=== PATIENT | male | born 1990 | race Caucasian/White ===

== ENCOUNTER 2016-08-29 10:47 | Emergency (ER) | payer OTHER ==
[2016-08-29] MEDS ORDERED: KETOROLAC 30 MG/ML VIAL (J1885) As Ordered ONE (12:17)
--- NOTE | 2016-08-29 13:19 | EDDOCDS ---
Physician Documentation [facility] Name: Luis Enrique Kaiser Iii Age: 26 yrs Sex: Male : 1990 Arrival Date: 08/29/2016 Time: 10:47 Bed TR8 Private MD: [facility] [place] Disposition: 08/29/16 12:59 Discharged to Home/Self Care. Impression: Dorsalgia - Acute, Right-sided. - Condition is Stable. - Discharge Instructions: Back Pain, Adult, [id number]. - Prescriptions for Mobic 7.5 mg Oral Tablet - take 1 tablet by ORAL route once daily take with food; 20 tablet. Prednisone 20 mg Oral Tablet - take 3 tablet by ORAL route once daily for 5 days; 15 tablet. Zanaflex 4 mg Oral Tablet - take 1 tablet by ORAL route At bedtime As needed Will cause drowsiness, do not take while driving/operating heavy machinery.; 20 tablet. - Medication Reconciliation, Local Pharmacy Hours form. - Follow up: [facility]; When: 1 - 2 days; Reason: Recheck today's complaints, Continuance of care. Follow up: Emergency Department; Reason: Worsening of conditions. - Problem is new. - Symptoms have improved. Historical: - Allergies: no known allergies; - Home Meds: 1. none - PMHx: none; - PSHx: none; - Social history: Smoking status: Chewing Tobacco No barriers to communication noted, The patient speaks fluent Sao Tomean. - Family history: Not pertinent. - : The pt / caregiver states he / she is not on anticoagulants. Home medication list is obtained from the patient. - Exposure Risk Screening:: None identified. Vital Signs: 08/29 10:49 BP 147 / 82; Pulse 78; Resp 18 S; Temp 97.2(O); Pulse Ox 100% on R/A; Weight 70.31 kg / dd6 155.01 lbs (R); Height 5 ft. 10 in. (177.80 cm) (R); 13:08 BP 114 / 78; Pulse 61; Resp 20; Temp 98.9(TE); Pulse Ox 97% on R/A; Pain 7/10; ar3 10:49 Body Mass Index 22.24 (70.31 kg, 177.80 cm) dd6 MDM: 12:10 Misc. Nursing Order ordered. ef1 12:15 ketorolac 60 mg IM once ordered. ef1 13:14 [facility] Payment Agreement was scanned into [employer] and attached to record. jp5 13:14 Financial registration complete. jp5 Administered Medications: 12:23 Drug: ketorolac 60 mg [ketorolac 30 mg/mL (1 mL) injection solution (2 mL)] Route: IM; kcs Site: left gluteus; Signatures: Dora Luna RN RN kcs Scott, Debra, RN RN dls Feola, Erica, PA-C PA-C ef1 Ally Hooper RN RN ms18 Siena Valenzuela jp5 The chart was reviewed and I authenticate all verbal orders and agree with the evaluation and treatment provided.Attachments: 13:14 [facility] Payment Agreement jp5 MTDD
--- NOTE | 2016-08-29 13:19 | EDDOCDS ---
Nurse's Notes [facility] Name: Luis Enrique Kaiser Iii Age: 26 yrs Sex: Male : 1990 Arrival Date: 08/29/2016 Time: 10:47 Bed TR8 Private MD: AKLANE HUMPHREY Diagnosis: Dorsalgia-Acute, Right-sided Presentation: 08/29 10:55 Presenting complaint: Patient states: Pt presents with c/o neck pain right side dls shoulder arm down to his hand with numbness to fingers woke up with sx yesterday morning denies injury. Risk Factors No acute neurological deficit is noted. Adult Sepsis Screening: The patient does not have new or worsening altered mentation. Patient's respiratory rate is less than 22. Systolic blood pressure is greater than 100. Patient has a qSOFA score of 0- Negative Sepsis Screen. Suicide/Homicide risk assessment- the patient denies having any suicidal and/or homicidal ideations and does not present with any other emotional, behavioral or mental health complaints. Status: The patient is an active duty services advisor. Transition of care: patient was not received from another setting of care. 10:55 Acuity: AMERICA Level 4 dls 10:55 Method Of Arrival: Walkin/Carried/Asstd dls Triage Assessment: 10:57 General: Appears uncomfortable, well developed, well nourished, well groomed, Behavior dls is cooperative. Pain: Pain currently is 8 out of 10 on a pain scale. HIV screening NA for this visit Offered previously. Musculoskeletal: Reports pain in right hand and right arm. Injury Description: No known injury. Historical: - Allergies: no known allergies; - Home Meds: 1. none - PMHx: none; - PSHx: none; - Social history: Smoking status: Chewing Tobacco No barriers to communication noted, The patient speaks fluent Kazakh. - Family history: Not pertinent. - : The pt / caregiver states he / she is not on anticoagulants. Home medication list is obtained from the patient. - Exposure Risk Screening:: None identified. Screenin:16 Screening information is obtained from the patient. Fall risk: No risks identified. ms18 Fall risk: At risk due to. Assistance ADL's: requires no assistance with activities of daily living. Abuse/DV Screen: The patient / caregiver reports he/she is: not in a situation that causes fear, pain or injury. Nutritional screening: No deficits noted. Advance Directives: There is no living will. home support is adequate. Assessment: 13:16 General: Appears in no apparent distress, comfortable, Behavior is appropriate for age, ms18 cooperative. Pain: Location: right arm Pain currently is 7 out of 10 on a pain scale. Neurological: Level of Consciousness is awake, alert, obeys commands, Oriented to person, place, time, Moves all extremities. Gait is steady, Speech is normal, Facial symmetry appears normal. Respiratory: No deficits noted. Derm: Skin is pink, warm & dry. Vital Signs: 10:49 BP 147 / 82; Pulse 78; Resp 18 S; Temp 97.2(O); Pulse Ox 100% on R/A; Weight 70.31 kg dd6 (R); Height 5 ft. 10 in. (177.80 cm) (R); 13:08 BP 114 / 78; Pulse 61; Resp 20; Temp 98.9(TE); Pulse Ox 97% on R/A; Pain 7/10; ar3 10:49 Body Mass Index 22.24 (70.31 kg, 177.80 cm) dd6 Vitals: 10:49 Log In Time: August 29, 2016 at 10:47. dd6 ED Course: 10:48 Patient visited by Jeancarlos Nolasco PCA. dd6 10:48 Patient moved to Waiting dd6 10:49 [facility] is Private Physician. dd6 10:50 Patient moved to Pre RCE dd6 10:57 Triage Initiated dls 11:30 Patient moved to Triage 2 ar3 11:55 [facility] ef1 11:55 David Raphael MD is Attending Physician. ef1 12:08 Patient visited by Jaz Olivera PA-C. ef1 12:21 Patient moved to PR2 / 26 ar3 12:47 Patient visited by Jaz Olivera PA-C. ef1 12:58 Patient visited by Jaz Olivera PA-C. ef1 12:58 [facility] is Referral Physician. ef1 13:09 Patient visited by Farhana Riggins PCA. ar3 13:14 [facility] Payment Agreement was scanned into [employer] and attached to record. jp5 13:15 Patient visited by Ally Hooper RN. ms18 13:15 Patient moved to 8 ms18 13:16 The patient / caregiver is instructed regarding the plan of care and ED course. Patient ms18 has correct armband on for positive identification. Property sent home with patient. :Personal belongings accompany Pt. 13:16 No IV's were initiated during this patient's visit. No procedures done that require ms18 assistance. Administered Medications: 12:23 Drug: ketorolac 60 mg [ketorolac 30 mg/mL (1 mL) injection solution (2 mL)] Route: IM; kcs Site: left gluteus; Order Results: There are currently no results for this order. Outcome: 12:59 Discharge ordered by Provider. ef1 13:16 Discharge Assessment: Patient awake, alert and oriented x 3. No cognitive and/or ms18 functional deficits noted. Patient verbalized understanding of disposition instructions. patient administered narcotics - no. The following High Risk Discharge criteria are identified: None. Discharged to home ambulatory. Condition: good Condition: stable. Discharge instructions given to patient, Instructed on discharge instructions, follow up and referral plans. medication usage, Demonstrated understanding of instructions, medications, Pt was receptive of discharge instructions/ teaching. Prescriptions given X 3. No special radiology studies were completed. 13:18 Patient left the ED. ms18 Signatures: Dora uLna RN Yoli Garcia RN RN dls Desormeau, Daniell, EMERGENCY MEDICAL DISPATCHER EMERGENCY MEDICAL DISPATCHER dd6 Jaz Olivera, PA-C PA-C ef1 Farhana Riggins, EMERGENCY MEDICAL DISPATCHER EMERGENCY MEDICAL DISPATCHER ar3 Ally Hooper RN RN ms18 Siena Valenzuela jp5 MTDD
--- NOTE | 2016-08-31 14:19 | EDDOCDS ---
Physician Documentation [facility] Name: Luis Enrique Kaiser Iii Age: 26 yrs Sex: Male : 1990 Arrival Date: 08/29/2016 Time: 10:47 Bed TR8 Private MD: [facility] [place] Disposition: 08/29/16 12:59 Discharged to Home/Self Care. Impression: Dorsalgia - Acute, Right-sided. - Condition is Stable. - Discharge Instructions: Back Pain, Adult, [id number]-[id number]. - Prescriptions for Mobic 7.5 mg Oral Tablet - take 1 tablet by ORAL route once daily take with food; 20 tablet. Prednisone 20 mg Oral Tablet - take 3 tablet by ORAL route once daily for 5 days; 15 tablet. Zanaflex 4 mg Oral Tablet - take 1 tablet by ORAL route At bedtime As needed Will cause drowsiness, do not take while driving/operating heavy machinery.; 20 tablet. - Medication Reconciliation, Local Pharmacy Hours form. - Follow up: [facility]; When: 1 - 2 days; Reason: Recheck today's complaints, Continuance of care. Follow up: Emergency Department; Reason: Worsening of conditions. - Problem is new. - Symptoms have improved. Historical: - Allergies: no known allergies; - Home Meds: 1. none - PMHx: none; - PSHx: none; - Social history: Smoking status: Chewing Tobacco No barriers to communication noted, The patient speaks fluent Nicaraguan. - Family history: Not pertinent. - : The pt / caregiver states he / she is not on anticoagulants. Home medication list is obtained from the patient. - Exposure Risk Screening:: None identified. Vital Signs: 08/29 10:49 BP 147 / 82; Pulse 78; Resp 18 S; Temp 97.2(O); Pulse Ox 100% on R/A; Weight 70.31 kg / dd6 155.01 lbs (R); Height 5 ft. 10 in. (177.80 cm) (R); 13:08 BP 114 / 78; Pulse 61; Resp 20; Temp 98.9(TE); Pulse Ox 97% on R/A; Pain 7/10; ar3 10:49 Body Mass Index 22.24 (70.31 kg, 177.80 cm) dd6 MDM: 12:10 Misc. Nursing Order ordered. ef1 12:15 ketorolac 60 mg IM once ordered. ef1 13:14 [facility] Payment Agreement was scanned into [employer] and attached to record. jp5 13:14 Financial registration complete. jp5 14:53 T-Sheet-- Draft Copy was scanned into [employer] and attached to record. gb Administered Medications: 12:23 Drug: ketorolac 60 mg [ketorolac 30 mg/mL (1 mL) injection solution (2 mL)] Route: IM; kcs Site: left gluteus; Signatures: Dora Luna, RN RN Yoli Kraus RN RN dls Teresa Mcfarlane, Reg Reg gb Jaz Olivera, PA-C PA-C ef1 Ally Hooper,RN RN ms18 Siena Valenzuela jp5 The chart was reviewed and I authenticate all verbal orders and agree with the evaluation and treatment provided.Attachments: 13:14 [facility] Payment Agreement jp5 14:53 T-Sheet-- Draft Copy gb Chart Complete MTDD
--- NOTE | 2016-08-31 14:19 | EDDOCDS ---
Physician Documentation [facility] Name: Luis Enrique Kaiser Iii Age: 26 yrs Sex: Male : 1990 Arrival Date: 08/29/2016 Time: 10:47 Bed TR8 Private MD: [facility] [place] Disposition: 08/29/16 12:59 Discharged to Home/Self Care. Impression: Dorsalgia - Acute, Right-sided. - Condition is Stable. - Discharge Instructions: Back Pain, Adult, [id number]. - Prescriptions for Mobic 7.5 mg Oral Tablet - take 1 tablet by ORAL route once daily take with food; 20 tablet. Prednisone 20 mg Oral Tablet - take 3 tablet by ORAL route once daily for 5 days; 15 tablet. Zanaflex 4 mg Oral Tablet - take 1 tablet by ORAL route At bedtime As needed Will cause drowsiness, do not take while driving/operating heavy machinery.; 20 tablet. - Medication Reconciliation, Local Pharmacy Hours form. - Follow up: [facility]; When: 1 - 2 days; Reason: Recheck today's complaints, Continuance of care. Follow up: Emergency Department; Reason: Worsening of conditions. - Problem is new. - Symptoms have improved. Historical: - Allergies: no known allergies; - Home Meds: 1. none - PMHx: none; - PSHx: none; - Social history: Smoking status: Chewing Tobacco No barriers to communication noted, The patient speaks fluent Guamanian. - Family history: Not pertinent. - : The pt / caregiver states he / she is not on anticoagulants. Home medication list is obtained from the patient. - Exposure Risk Screening:: None identified. Vital Signs: 08/29 10:49 BP 147 / 82; Pulse 78; Resp 18 S; Temp 97.2(O); Pulse Ox 100% on R/A; Weight 70.31 kg / dd6 155.01 lbs (R); Height 5 ft. 10 in. (177.80 cm) (R); 13:08 BP 114 / 78; Pulse 61; Resp 20; Temp 98.9(TE); Pulse Ox 97% on R/A; Pain 7/10; ar3 10:49 Body Mass Index 22.24 (70.31 kg, 177.80 cm) dd6 MDM: 12:10 Misc. Nursing Order ordered. ef1 12:15 ketorolac 60 mg IM once ordered. ef1 13:14 [facility] Payment Agreement was scanned into [employer] and attached to record. jp5 13:14 Financial registration complete. jp5 14:53 T-Sheet-- Draft Copy was scanned into [employer] and attached to record. gb Administered Medications: 12:23 Drug: ketorolac 60 mg [ketorolac 30 mg/mL (1 mL) injection solution (2 mL)] Route: IM; kcs Site: left gluteus; Signatures: Dora Luna, RN RN Yoli Kraus RN RN dls Teresa Mcfarlane, Reg Reg gb Jaz Olivera, PA-C PA-C ef1 Ally Hooper,RN RN ms18 Siena Valenzuela jp5 The chart was reviewed and I authenticate all verbal orders and agree with the evaluation and treatment provided.Attachments: 13:14 [facility] Payment Agreement jp5 14:53 T-Sheet-- Draft Copy gb Chart Complete MTDD
--- NOTE | 2016-08-31 14:19 | EDDOCDS ---
Nurse's Notes [facility] Name: Luis Enrique Kaiser Iii Age: 26 yrs Sex: Male : 1990 Arrival Date: 08/29/2016 Time: 10:47 Bed TR8 Private MD: CALANE HUMPHREY Diagnosis: Dorsalgia-Acute, Right-sided Presentation: 08/29 10:55 Presenting complaint: Patient states: Pt presents with c/o neck pain right side dls shoulder arm down to his hand with numbness to fingers woke up with sx yesterday morning denies injury. Risk Factors No acute neurological deficit is noted. Adult Sepsis Screening: The patient does not have new or worsening altered mentation. Patient's respiratory rate is less than 22. Systolic blood pressure is greater than 100. Patient has a qSOFA score of 0- Negative Sepsis Screen. Suicide/Homicide risk assessment- the patient denies having any suicidal and/or homicidal ideations and does not present with any other emotional, behavioral or mental health complaints. Status: The patient is an active duty financial services assistant. Transition of care: patient was not received from another setting of care. 10:55 Acuity: AMERICA Level 4 dls 10:55 Method Of Arrival: Walkin/Carried/Asstd dls Triage Assessment: 10:57 General: Appears uncomfortable, well developed, well nourished, well groomed, Behavior dls is cooperative. Pain: Pain currently is 8 out of 10 on a pain scale. HIV screening NA for this visit Offered previously. Musculoskeletal: Reports pain in right hand and right arm. Injury Description: No known injury. Historical: - Allergies: no known allergies; - Home Meds: 1. none - PMHx: none; - PSHx: none; - Social history: Smoking status: Chewing Tobacco No barriers to communication noted, The patient speaks fluent Tamazight. - Family history: Not pertinent. - : The pt / caregiver states he / she is not on anticoagulants. Home medication list is obtained from the patient. - Exposure Risk Screening:: None identified. Screenin:16 Screening information is obtained from the patient. Fall risk: No risks identified. ms18 Fall risk: At risk due to. Assistance ADL's: requires no assistance with activities of daily living. Abuse/DV Screen: The patient / caregiver reports he/she is: not in a situation that causes fear, pain or injury. Nutritional screening: No deficits noted. Advance Directives: There is no living will. home support is adequate. Assessment: 13:16 General: Appears in no apparent distress, comfortable, Behavior is appropriate for age, ms18 cooperative. Pain: Location: right arm Pain currently is 7 out of 10 on a pain scale. Neurological: Level of Consciousness is awake, alert, obeys commands, Oriented to person, place, time, Moves all extremities. Gait is steady, Speech is normal, Facial symmetry appears normal. Respiratory: No deficits noted. Derm: Skin is pink, warm & dry. Vital Signs: 10:49 BP 147 / 82; Pulse 78; Resp 18 S; Temp 97.2(O); Pulse Ox 100% on R/A; Weight 70.31 kg dd6 (R); Height 5 ft. 10 in. (177.80 cm) (R); 13:08 BP 114 / 78; Pulse 61; Resp 20; Temp 98.9(TE); Pulse Ox 97% on R/A; Pain 7/10; ar3 10:49 Body Mass Index 22.24 (70.31 kg, 177.80 cm) dd6 Vitals: 10:49 Log In Time: August 29, 2016 at 10:47. dd6 ED Course: 10:48 Patient visited by Jeancarlos Nolasco PCA. dd6 10:48 Patient moved to Waiting dd6 10:49 [facility] is Private Physician. dd6 10:50 Patient moved to Pre RCE dd6 10:57 Triage Initiated dls 11:30 Patient moved to Triage 2 ar3 11:55 [facility] ef1 11:55 David Raphael MD is Attending Physician. ef1 12:08 Patient visited by Jaz Olivera PA-C. ef1 12:21 Patient moved to PR2 / 26 ar3 12:47 Patient visited by Jaz Olivera PA-C. ef1 12:58 Patient visited by Jaz Olivera PA-C. ef1 12:58 [facility] is Referral Physician. ef1 13:09 Patient visited by Farhana Riggins PCA. ar3 13:14 [facility] Payment Agreement was scanned into [employer] and attached to record. jp5 13:15 Patient visited by Ally Hooper RN. ms18 13:15 Patient moved to TR8 ms18 13:16 The patient / caregiver is instructed regarding the plan of care and ED course. Patient ms18 has correct armband on for positive identification. Property sent home with patient. :Personal belongings accompany Pt. 13:16 No IV's were initiated during this patient's visit. No procedures done that require ms18 assistance. 14:53 T-Sheet-- Draft Copy was scanned into [employer] and attached to record. 15:35 Patient name changed from Luis Enrique\S\\S\Awilda Iii\S\ to Luis Enrique\S\Luis A\S\[place] Iii. EDMS Administered Medications: 12:23 Drug: ketorolac 60 mg [ketorolac 30 mg/mL (1 mL) injection solution (2 mL)] Route: IM; kcs Site: left gluteus; Order Results: There are currently no results for this order. Outcome: 12:59 Discharge ordered by Provider. ef1 13:16 Discharge Assessment: Patient awake, alert and oriented x 3. No cognitive and/or ms18 functional deficits noted. Patient verbalized understanding of disposition instructions. patient administered narcotics - no. The following High Risk Discharge criteria are identified: None. Discharged to home ambulatory. Condition: good Condition: stable. Discharge instructions given to patient, Instructed on discharge instructions, follow up and referral plans. medication usage, Demonstrated understanding of instructions, medications, Pt was receptive of discharge instructions/ teaching. Prescriptions given X 3. No special radiology studies were completed. 13:18 Patient left the ED. ms18 Signatures: [facility] Dora Luna RN RN kcs Scott, Debra, RN RN dls Barnhardt, Gloria, Reg Reg gb Jeancarlos Nolasco, EXERCISE EQUIPMENT SPECIALIST EXERCISE EQUIPMENT SPECIALIST dd6 Jaz Olivera, PA-C PA-C ef1 Farhana Riggins, EXERCISE EQUIPMENT SPECIALIST EXERCISE EQUIPMENT SPECIALIST ar3 Ally Hooper,SAMSON RN ms18 Mickey Valenzueladella jp5 Chart Complete MTDD
== END 2016-08-29 13:18 | disposition home or self-care (01) ==
LOC: M ED 10:47
DX: M54.9 Dorsalgia, unspecified (principal); F17.228 Nicotine dependence, chewing tobacco, with other nicotine-induced disorders
CPT/HCPCS: 96372; 99283; J1885